=== PATIENT | female | born 1950 | race Caucasian/White ===

== ENCOUNTER → 2021-05-07 | Day surgery (SDC) | payer MEDICARE, OTHER ==
[~2021-05-07] VITALS: Ht 172.7 cm; Wt 74.8 kg
[~2021-05-07] MED LIST: ACETAMINOPHEN500 M1 PO; ALLEGRA ALLERG180 MG PO; AMLODIPINE BESYL5 MG PO; ATORVASTATIN CA20 MG PO; CETIRIZINE HCL10 MG PO; COLACE100 MG PO; COZAAR 25MG TAB25 MG PO; DETROL LA2 MG PO; DICLOFENAC SODI75 MG PO; FLONASE ALLER15.8 ML; GABAPENTIN600 MG PO; LOSARTAN POTASS25 MG PO; LYRICA75 MG PO; MOTRIN600 MG PO; NEXIUM20 MG PO; ONDANSETRON HCL4 MG PO; OXY-IR 5MG5 MG PO; PAROXETINE HCL30 MG PO; PAXIL20 MG PO; PERCOCET 5-3251 EACH PO; PREGABALIN100 MG PO; XARELTO10 MG PO; ZANTAC150 MG PO; ZOFRAN8 MG PO
[2021-05-07 10:48] LABS: ALBUMIN 3.7 g/dL (3.4-5.0); ALKALINE PHOSHATASE 69 U/L (46-116); ALT 31 U/L (14-59); AMYLASE <2 U/L (25-115); AST 16 U/L (15-37); BILIRUBIN - TOTAL 0.3 mg/dL (0.2-1.0); BUN 19 mg/dL (7-18); BUN/CREAT RATIO (CALC) 19.4 RATIO; CHLORIDE 106 mmol/L (98-107); CO2 (BICARBONATE) 27 mmol/L (21-32); CREATININE 0.98 mg/dL (0.51-0.95); GLOBULIN (CALCULATION) 3.5 g/dL; GLUCOSE 101 mg/dL (74-106); LIPASE 69 U/L (73-393); POTASSIUM 4.1 mmol/L (3.5-5.1); TOTAL PROTEIN 7.2 g/dL (6.4-8.2)
== END | disposition home or self-care (01) ==
LOC: FAS 05-02 07:30
PROVIDERS: Student in an Organized Health Care Education/Training Program
DX: K80.10 Calculus of gallbladder with chronic cholecystitis without obstruction (principal); K21.9 Gastro-esophageal reflux disease without esophagitis; I10 Essential (primary) hypertension; E78.00 Pure hypercholesterolemia, unspecified; E66.9 Obesity, unspecified; Z96.651 Presence of right artificial knee joint
CPT/HCPCS: 36415; 80053; 82150; 83690; J0690; J1100; J1170; J1644; J2250; J2405; J2704; J3010; J7120